=== PATIENT | male | born 1960 | race Caucasian/White ===

== ENCOUNTER 2018-08-08 07:27 | Emergency (ER) | payer OTHER ==
[~2018-08-08] VITALS: Ht 185.4 cm; Wt 100.9 kg
[2018-08-08] MEDS ORDERED: LIDOCAINE 1%-EPI 1:100K, 20ML SQ ONE (08:00)
[2018-08-08] MEDS ORDERED: LIDOCAINE-MPF 1%, 2ML ONE (09:06)
[2018-08-08 10:04] VITALS: BP 155/90
== END 2018-08-08 10:15 | disposition home or self-care (01) ==
LOC: ED 10:09
DX: S01.01XA Laceration without foreign body of scalp, initial encounter (principal); G89.11 Acute pain due to trauma; M54.5 Low back pain; R51 Headache; W00.0XXA Fall on same level due to ice and snow, initial encounter; Y93.89 Activity, other specified; Y92.009 Unspecified place in unspecified non-institutional (private) residence as the place of occurrence of the external cause; Y99.8 Other external cause status
CPT/HCPCS: 12032; 70450; 72220; 99284